=== PATIENT | female | born 1930 | race Caucasian/White ===

== ENCOUNTER → 2017-04-06 | Outpatient (CLI) | payer MEDICARE, OTHER ==
--- NOTE | 2017-04-07 10:31 | MRI ---
EXAM DESCRIPTION: Lumbar Spine w/o Contrast CLINICAL HISTORY: 86 years, Female, RADICULOPATHY COMPARISON: None TECHNIQUE: Multiplanar multi sequence images of the lumbar spine were obtained without gadolinium contrast. FINDINGS: There is minimal grade 1 anterolisthesis at L4-5 and L5-S1, likely related to facet joint degeneration at both levels. No pars defect is identified. Otherwise, vertebral body height and alignment are well-maintained. Is a hemangioma in the T11 body. Minimal Modic type I discogenic endplate signal changes are present at L1-2 and L3-4. The conus lies posterior to the L1-2 disc, and the cauda equina is unremarkable. The paraspinal and visualized retroperitoneal soft tissues are unremarkable. Disc desiccation is noted throughout the lower thoracic and lumbar spine. At L1-2, there is concentric disc bulging, slightly worse in the right foraminal position, with mild bilateral facet joint degeneration resulting in mild right-sided neuroforaminal stenosis. At L2-3, there is concentric disc bulging with bilateral facet joint degeneration resulting in only slight bilateral neuroforaminal stenosis. At L3-4, there is concentric disc bulging with more advanced bilateral facet joint degeneration, worse on the left side. Findings result in mild right-sided and moderate to moderately advanced left-sided neuroforaminal stenosis. Disc material approaches but does not definitely abut the exiting left L3 nerve root. At L4-5, there is concentric disc bulging with bilateral facet joint degeneration and ligament flavum thickening resulting in mild central canal and mild to moderate bilateral neuroforaminal stenosis. Disc material approaches but does not definitely abut or displace the exiting L4 nerve roots. At L5-S1, there is concentric disc bulging, worse in the posterior right para midline and right foraminal and right lateral positions. Bilateral facet joint degeneration is noted, and findings result in fairly advanced right-sided and only mild left-sided neuroforaminal stenosis. Disc material approaches and only questionably abuts the exiting right L5 nerve root. IMPRESSION: Disc bulging, facet joint degeneration and/or ligamentum flavum thickening at L3-4, L4-5 and L5-S1 resulting in central canal stenosis, neuroforaminal stenosis and questionable nerve root abutment as detailed above. Overall, findings are worse on the right side at L5-S1. Electronically signed by: Jamie Land MD 04/07/2017 10:31 AM CDT
== END | disposition home or self-care (01) ==
LOC: MRI 14:14
PROVIDERS: ATTEND Psychiatry & Neurology Neurology
DX: M54.16 Radiculopathy, lumbar region (principal)

== ENCOUNTER → 2017-06-16 | Outpatient (CLI) | payer MEDICARE, OTHER | LOC: GMAB 17:38 | PROVIDERS: ATTEND Family Medicine | DX: E03.9 Hypothyroidism, unspecified (principal); E78.2 Mixed hyperlipidemia; I10 Essential (primary) hypertension ==

== ENCOUNTER 2017-07-17 15:41 | Emergency (ER) | payer MEDICARE, OTHER ==
[2017-07-17 16:04] VITALS: TEMP 99.5
[2017-07-17] MEDS ORDERED: KETOROLAC TROMETHAMINE INJ 60 MG/2 ML VIAL IM ONE (16:28)
--- NOTE | 2017-07-17 16:32 | ED.PDOC ---
History of Present Illness - General Chief Complaint: Back Pain or Injury Stated Complaint: back pain, post-op Time Seen by Provider: 07/17/17 16:19 Source: patient, RN notes reviewed, Vital Signs reviewed, RN/MD Exam Limitations: no limitations - History of Present Illness Initial Comments: Patient comes in with back pain 09/01 after Microdiscectomy on 07/14/17. Pain is down her right leg. Pain is worse when she is getting up and moving. She is on [place] from her Neurosurgeon. Neurosurgeons nurse called and relayed that he thinks it is probably just and inflammation issue and needs a steroid pack but would like her checked out first. Patient reports that the pain has been consistent since the surgery and is not worsening. No drainage or pain at incision site. Timing/Duration: days - 4 Quality/Severity: severe, burning Back Pain Location: lumbar spine Back Pain Radiation: buttocks - Right, lower legs - Right Method of Injury/Prior Injury: other - Post-Op Improving Factors: nothing Worsening Factors: movement Associated Symptoms: denies symptoms Allergies/Adverse Reactions: Allergies Codeine Allergy (Intermediate, Verified 06/29/14 04:31) Vomitting Erythromycin Allergy (Intermediate, Verified 06/29/14 04:31) Vomitting Ether Allergy (Verified 06/29/14 04:31) Vomitting TAPE Allergy (Severe, Uncoded 06/29/14 04:31) Rash PT HAD BLISTERS WHERE TAPE WAS REMOVED WHEN HAD HIP REPLACEMENT IN [facility]. PLEASE USE PAPER TAPE. Home Medications: Ambulatory Orders Aspirin 1 tab PO DAILY 11/26/12 Multiple Vitamin [Multi-Vitamin] 1 tab PO DAILY 11/26/12 Omeprazole [Prilosec] 1 cap PO DAILY 11/26/12 Potassium 1 tab PO DAILY 11/26/12 Triamterene & Hydrochlorothiaz [Hctz/Triamterene 75-50 mg] 25 mg PO DAILY Levothyroxine Sodium [Synthroid] 100 mcg PO DAILY 04/20/13 Metoprolol Succinate [Toprol Xl] 25 mg PO DAILY 04/20/13 Primidone 100 mg PO HS 04/20/13 Simvastatin 40 mg PO DAILY 04/20/13 Methylprednisolone [Medrol Dose Alejo] 4 mg PO DAILY #1 pack 07/17/17 Review of Systems - Review of Systems Constitutional: States: no symptoms reported Respiratory: States: no symptoms reported Cardiology: States: no symptoms reported Gastrointestinal/Abdominal: States: no symptoms reported Musculoskeletal: States: see HPI Skin: States: no symptoms reported Neurological: States: see HPI All other Systems: No Change from Baseline Past Medical History (General) - Patient Medical History Hx Stroke: No Hx Asthma: Yes - has attack q5-6 mos, takes proair inhaler Hx of COPD: No Hx Cardiac Disorders: Yes Hx Congestive Heart Failure: No Hx Pacemaker: No Hx Hypertension: Yes - since 2002 Hx Diabetes: No Hx MRSA: No Surgical History: appendectomy, cholecystectomy, tonsillectomy, Hysterectomy, other - Social History Hx Tobacco Use: No Hx Alcohol Use: Yes Hx Substance Use: No Hx Physical Abuse: No Hx Emotional Abuse: No Family Medical History - Family History Mother Family History: Unknown Physical Exam - Physical Exam General Appearance: Alert, Comfortable, No apparent distress, Well Developed, Well Groomed, Well Hydrated, Well Nourished Cardiovascular/Respiratory: normal peripheral pulses Peripheral Pulses: dorsalis pedis,right: 2+ Back Exam: normal inspection - except for surgical dressing, no surrounding erythema, warmth or tenderness Extremity Exam: no evidence of injury, normal range of motion, no pedal edema Neurologic: no motor/sensory deficits, alert, normal mood/affect, oriented x 3 Skin Exam: normal color, warm/dry Comments: Vital Signs 07/17/17 15:50 Temperature 99.5 F Pulse Rate [ 64 left brachial] Respiratory 16 Rate Blood Pressure 140/63 [right brachial ] O2 Sat by Pulse 97 Oximetry Progress - Progress Progress: 07/17/17 16:36 Toradol 60mg IM given Departure - Departure Clinical Impression: Sciatica Qualifiers: Laterality: right Qualified Code(s): M54.31 - Sciatica, right side ICD-10 Supporting Text: Post operative nerve pain, s/p microdiscectomy Time of Disposition: 16:35 Disposition: Discharge to Home or Self Care Condition: Good Departure Forms: ED Discharge - Pt. Copy, Patient Portal Self Enrollment Instructions: DI for Back Pain With Sciatica Diet: resume usual diet Activity: increase activity as tolerated Referrals: Jason Baez MD [Primary Care Provider] - 1-2 Weeks Prescriptions: Methylprednisolone [Medrol Dose Alejo] 4 mg PO DAILY #1 pack Home Medications: Ambulatory Orders Aspirin 1 tab PO DAILY 11/26/12 Multiple Vitamin [Multi-Vitamin] 1 tab PO DAILY 11/26/12 Omeprazole [Prilosec] 1 cap PO DAILY 11/26/12 Potassium 1 tab PO DAILY 11/26/12 Triamterene & Hydrochlorothiaz [Hctz/Triamterene 75-50 mg] 25 mg PO DAILY Levothyroxine Sodium [Synthroid] 100 mcg PO DAILY 04/20/13 Metoprolol Succinate [Toprol Xl] 25 mg PO DAILY 04/20/13 Primidone 100 mg PO HS 04/20/13 Simvastatin 40 mg PO DAILY 04/20/13 Methylprednisolone [Medrol Dose Alejo] 4 mg PO DAILY #1 pack 07/17/17
[2017-07-17 17:13] VITALS: BP 125/54; O2SAT 95
== END 2017-07-17 16:53 | disposition home or self-care (01) ==
LOC: ER 15:41
DX: G89.18 Other acute postprocedural pain (principal); M54.31 Sciatica, right side; I10 Essential (primary) hypertension; J45.909 Unspecified asthma, uncomplicated; Z79.899 Other long term (current) drug therapy; Z79.82 Long term (current) use of aspirin; Z88.6 Allergy status to analgesic agent; Z88.8 Allergy status to other drugs, medicaments and biological substances; Z88.3 Allergy status to other anti-infective agents

== ENCOUNTER → 2018-02-24 | Outpatient (CLI) | payer MEDICARE, OTHER | END | disposition home or self-care (01) | LOC: GMAB 17:15 | PROVIDERS: ATTEND Family Medicine | DX: E03.9 Hypothyroidism, unspecified (principal); R29.898 Other symptoms and signs involving the musculoskeletal system; R41.81 Age-related cognitive decline; M62.81 Muscle weakness (generalized); E53.8 Deficiency of other specified B group vitamins ==

== ENCOUNTER → 2018-06-02 | Outpatient (CLI) | payer MEDICARE, OTHER | LOC: GMAB 17:20 | PROVIDERS: ATTEND Family Medicine | DX: E03.9 Hypothyroidism, unspecified (principal) ==

== ENCOUNTER → 2018-07-01 | Outpatient (CLI) | payer MEDICARE, OTHER | LOC: GMAE 17:16 | PROVIDERS: ATTEND Family Medicine | DX: E03.9 Hypothyroidism, unspecified (principal) ==

== ENCOUNTER → 2018-09-23 | Outpatient (CLI) | payer MEDICARE, OTHER | LOC: GMAE 17:49 | PROVIDERS: ATTEND Family Medicine | DX: D50.9 Iron deficiency anemia, unspecified (principal) ==

== ENCOUNTER → 2018-10-05 | Outpatient (CLI) | payer MEDICARE, OTHER ==
--- NOTE | 2018-10-05 17:09 | CT ---
EXAM DESCRIPTION: Head: Computed Tomography. CLINICAL HISTORY: ANHEDONIA. Confusion. COMPARISON: None. TECHNIQUE: Non-helical axial scans through the skull and brain, at 2.5 x 20 mm intervals, non-contrast. Coronal and sagittal 2 x 2 mm reconstructions. Total Exam DLP: 752.48 mGy-cm. This exam was performed according to our departmental dose-optimization program which includes automated exposure control, adjustment of the mA and/or kV according to patient size and/or use of iterative reconstruction technique; to reduce radiation dose to as low as reasonably achievable (ALARA). FINDINGS: No hemorrhage, no mass-effect, and no midline shift. Bilateral heterogeneous low-density in the periventricular white matter extending superior to the ventricles bilaterally. Bilateral calcifications in the basal ganglia. Vascular calcifications anterior circulation; physiologic calcifications in the pineal gland and choroid plexus. No effacement or displacement of the ventricles, CSF spaces, or subdural spaces. No extra axial fluid collection or hemorrhage. No gross abnormalities of the bony calvarium. Included paranasal sinuses and mastoid air cells are well - aerated, except for some of the anterior bilateral ethmoid air cells. IMPRESSION: 1. No hemorrhage, no mass effect, no midline shift. Periventricular white matter low-density bilaterally diffuse and heterogeneous most likely due to cerebral microvascular disease and age-related changes. Basal ganglia calcifications are using related to cerebral microvascular disease as well. 2. CT scans are insensitive for detecting small CVAs in the first 24 hours after onset. Evaluation of the brain stem is also limited. If symptoms persist, consider NON-EMERGENT MRI scan of the brain with diffusion imaging. Electronically signed by: Larry Miles MD 10/05/2018 5:08 PM [facility]
== END ==
LOC: CT 16:07
PROVIDERS: ATTEND Family Medicine
DX: R41.81 Age-related cognitive decline (principal); R41.9 Unspecified symptoms and signs involving cognitive functions and awareness; E83.52 Hypercalcemia; R45.84 Anhedonia

== ENCOUNTER → 2019-02-08 | Outpatient (CLI) | payer MEDICARE, OTHER | LOC: GMA 11:50 | PROVIDERS: ATTEND Family Medicine | DX: E03.9 Hypothyroidism, unspecified (principal) ==

== ENCOUNTER → 2019-02-10 | Outpatient (CLI) | payer MEDICARE, OTHER ==
--- NOTE | 2019-02-11 16:08 | US ---
EXAM DESCRIPTION: Soft Tissue,Head/Neck CLINICAL HISTORY: 88 years Female, THYROID NODULE COMPARISON: CT of the neck December 02, 2012. TECHNIQUE: Routine sonographic imaging of the soft tissues of the neck was performed. Images were acquired by the spanish interpreter/translator and sent for review. FINDINGS: Normal thyroidectomy changes are present. No recurrent disease is demonstrated within the thyroidectomy bed. No cervical lymphadenopathy is present. No abnormal mass or cystic finding within the neck. IMPRESSION: Normal thyroidectomy changes. Electronically signed by: Morales Riddle MD 02/11/2019 4:05 PM CDT
== END ==
LOC: US 14:30
PROVIDERS: ATTEND Family Medicine
DX: E04.1 Nontoxic single thyroid nodule (principal)

== ENCOUNTER → 2019-05-10 | Outpatient (CLI) | payer MEDICARE, OTHER | LOC: GMAE 15:16 | PROVIDERS: ATTEND Family Medicine | DX: E03.9 Hypothyroidism, unspecified (principal) ==

== ENCOUNTER → 2019-08-30 | Outpatient (CLI) | payer MEDICARE, OTHER | LOC: GMAE 14:39 | PROVIDERS: ATTEND Family Medicine | DX: E03.9 Hypothyroidism, unspecified (principal); I10 Essential (primary) hypertension ==

== ENCOUNTER → 2020-04-05 | Outpatient (CLI) | payer MEDICARE, OTHER, MEDICAID | LOC: GMAE 17:43 | PROVIDERS: ATTEND Family Medicine | DX: G60.3 Idiopathic progressive neuropathy (principal); R53.83 Other fatigue ==

== ENCOUNTER 2020-05-22 15:27 | Emergency (ER) | payer MEDICARE, OTHER, MEDICAID ==
[2020-05-22 15:48] VITALS: BP 158/75; TEMP 99.1; O2SAT 96
--- NOTE | 2020-05-22 15:48 | ED.PDOC ---
History of Present Illness - General Chief Complaint: Lower Extremity Injury Stated Complaint: right hip pain Time Seen by Provider: 05/22/20 15:39 - History of Present Illness Initial Comments: Pt fell yesterday in her kitchen. She says she was at the counter, and next thing she knew she was falling to the ground. She felt she may have twisted her right hip when she fell. She says she has a h/o a total hip replacement on [facility]. Pt says since fall, she has been able to ambulate with cane, but with increased pain. Pt denies head injury. She denies midline neck or back pain. Pt says that she otherwise feels great. She says she's had labwork in the past 3-6 months that was unremarkable. I offered labs today, but pt declined because she did not feel it was necessary. Allergies/Adverse Reactions: Allergies Codeine Allergy (Intermediate, Verified 06/29/14 04:31) Vomitting Erythromycin Allergy (Intermediate, Verified 06/29/14 04:31) Vomitting Ether Allergy (Verified 06/29/14 04:31) Vomitting TAPE Allergy (Severe, Uncoded 06/29/14 04:31) Rash PT HAD BLISTERS WHERE TAPE WAS REMOVED WHEN HAD HIP REPLACEMENT IN [facility]. PLEASE USE PAPER TAPE. Home Medications: Ambulatory Orders Aspirin 1 tab PO DAILY 11/26/12 Multiple Vitamin [Multi-Vitamin] 1 tab PO DAILY 11/26/12 Omeprazole [Prilosec] 1 cap PO DAILY 11/26/12 Potassium Gluconate [Potassium] 1 tab PO DAILY 11/26/12 Triamterene & Hydrochlorothiaz [Hctz/Triamterene 75-50 mg] 25 mg PO DAILY 11/26/12 Levothyroxine Sodium [Synthroid] 100 mcg PO DAILY 04/20/13 Metoprolol Succinate [Toprol Xl] 25 mg PO DAILY 04/20/13 Primidone 100 mg PO HS 04/20/13 Simvastatin 40 mg PO DAILY 04/20/13 Methylprednisolone [Medrol Dose Alejo] 4 mg PO DAILY #1 pack 07/17/17 Review of Systems - Review of Systems Constitutional: States: no symptoms reported EENTM: States: no symptoms reported Respiratory: States: no symptoms reported Cardiology: States: no symptoms reported Gastrointestinal/Abdominal: States: no symptoms reported Genitourinary: States: no symptoms reported Musculoskeletal: States: joint pain, muscle pain. Denies: back pain, gout, joint swelling, muscle stiffness, neck pain Skin: States: no symptoms reported Neurological: States: no symptoms reported. Denies: headache, numbness, paresthesia, tingling, weakness Endocrine: States: no symptoms reported Past Medical History (General) - Patient Medical History Hx Stroke: No Hx Asthma: Yes - has attack q5-6 mos, takes proair inhaler Hx of COPD: No Hx Cardiac Disorders: Yes Hx Congestive Heart Failure: No Hx Pacemaker: No Hx Hypertension: Yes Hx Diabetes: No Hx MRSA: No Surgical History: appendectomy - Vaccination History Hx Influenza Vaccination: No Hx Pneumococcal Vaccination: Yes - Social History Hx Tobacco Use: Yes Hx Alcohol Use: Yes Hx Substance Use: No Hx Physical Abuse: No Hx Emotional Abuse: No Family Medical History - Family History Mother Family History: Unknown Physical Exam - Physical Exam General Appearance: Alert, Comfortable, No apparent distress Neck: non-tender, full range of motion, normal inspection Cardiovascular/Respiratory: regular rate, rhythm, no M/R/G, normal peripheral pulses, no JVD, normal breath sounds, no respiratory distress Gastrointestinal/Abdominal: non-tender, no organomegaly, no hernia Back: normal inspection, no CVA tenderness, no vertebral tenderness Thigh/Hip: normal inspection, no evidence of injury, normal ROM, soft tissue tenderness - minimal inner right thigh and right hip. No edema, no discolartion Leg: normal inspection, no evidence of injury, normal ROM Knee: normal inspection, non-tender, no evidence of injury, normal ROM Ankle: normal inspection, non-tender, no evidence of injury, normal ROM Foot: normal inspection, non-tender, no evidence of injury, normal ROM Neuro/Tendon: normal sensation, normal motor functions Mental Status: alert, disoriented x 3 Skin: normal color, warm/dry Progress - Progress Progress: 05/22/20 15:56 Rt hip/pelvis - no fracture or dislocation. Hardware intact. No STS. No lytic lesions. Prior total hip arthroplasty. 05/22/20 15:58 Pt did not want any pain meds in ER or for home - EKG/XRAY/CT XRAY: hip - no fx/dislocation Departure - Departure Clinical Impression: Accidental fall, Contusion of hip, right, History of total hip replacement Time of Disposition: 15:58 Disposition: Discharge to Home or Self Care Condition: Excellent Departure Forms: ED Discharge - Pt. Copy, Patient Portal Self Enrollment Instructions: DI for Leg Pain Activity: increase activity as tolerated Referrals: VILMA ROBLEDO MD [Primary Care Provider] - 1-2 Weeks Home Medications: Ambulatory Orders Aspirin 1 tab PO DAILY 11/26/12 Multiple Vitamin [Multi-Vitamin] 1 tab PO DAILY 11/26/12 Omeprazole [Prilosec] 1 cap PO DAILY 11/26/12 Potassium Gluconate [Potassium] 1 tab PO DAILY 11/26/12 Triamterene & Hydrochlorothiaz [Hctz/Triamterene 75-50 mg] 25 mg PO DAILY 11/26/12 Levothyroxine Sodium [Synthroid] 100 mcg PO DAILY 04/20/13 Metoprolol Succinate [Toprol Xl] 25 mg PO DAILY 04/20/13 Primidone 100 mg PO HS 04/20/13 Simvastatin 40 mg PO DAILY 04/20/13 Methylprednisolone [Medrol Dose Alejo] 4 mg PO DAILY #1 pack 07/17/17
--- NOTE | 2020-05-22 16:00 | RAD ---
EXAM DESCRIPTION: Right hip, 2 radiographs CLINICAL HISTORY: Hip pain. Fall injury FINDINGS/ IMPRESSION: Right hip arthroplasty. Dysplastic acetabulum. No periprosthetic fracture or osteolysis. 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
--- NOTE | 2020-05-22 16:01 | RAD ---
EXAM DESCRIPTION: Pelvis, single view CLINICAL HISTORY: Fall injury. Hip pain FINDINGS/ IMPRESSION: Right hip arthroplasty. No periprostatic fracture or osteolysis. 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 No fracture of the left proximal femur or pelvis. Mild osteoarthritis bilateral sacroiliac joints and pubic symphysis Electronically signed by: Carlos Eduardo Saavedra MD 05/22/2020 4:00 PM CDT
== END 2020-05-22 16:03 | disposition home or self-care (01) ==
LOC: ER 15:27
DX: S70.01XA Contusion of right hip, initial encounter (principal); I10 Essential (primary) hypertension; Z96.641 Presence of right artificial hip joint; Z87.891 Personal history of nicotine dependence; Z79.899 Other long term (current) drug therapy; W19.XXXA Unspecified fall, initial encounter; Y92.000 Kitchen of unspecified non-institutional (private) residence as the place of occurrence of the external cause

== ENCOUNTER → 2020-09-25 | Outpatient (CLI) | payer MEDICARE, OTHER, MEDICAID | LOC: GMAE 17:01 | PROVIDERS: ATTEND Family Medicine | DX: E03.9 Hypothyroidism, unspecified (principal); I10 Essential (primary) hypertension ==

== ENCOUNTER → 2020-11-20 | Outpatient (CLI) | payer MEDICARE, OTHER, MEDICAID | LOC: GMAE 15:38 | PROVIDERS: ATTEND Family Medicine | DX: R41.9 Unspecified symptoms and signs involving cognitive functions and awareness (principal) ==

== ENCOUNTER → 2020-11-29 | Outpatient (CLI) | payer MEDICARE, OTHER, MEDICAID ==
--- NOTE | 2020-11-29 15:57 | MRI ---
EXAM DESCRIPTION: Brain w/o Contrast: MRI. CLINICAL HISTORY: UNSPECIFIED SYMPTOMS AND SIGNS INVOLVING COGNITIVE FUNCTIONS AND COMPARISON: None. TECHNIQUE: Multiplanar, high-field MRI unit, multiple diffusion sequences, multiple conventional sequences without contrast. FINDINGS: Multiple bilateral confluent and multifocal hyperintense FLAIR and T2-weighted signal lesions in the periventricular white matter and sub-cortical white matter slightly asymmetrically increased hyperintense FLAIR lesions in the left frontal lobe.. No diffusion restriction. No hemorrhage, no cerebral edema, no midline shift.. Small foci of similar signal in the anterior and posterior left basal ganglia. Normal signal in the right basal ganglia. Normal signal in the brainstem and cerebellar hemispheres.. Concordance of the diffusion and non-diffusion sequences with no diffusion restriction. Cortical sulci, ventricles, and other CSF spaces, and the subdural spaces are normally configured for patient's age. No effacement or displacement. No midline shift. No extra-axial hemorrhage. Normal flow signal void in the major vessels of the beaver Vanegas, and the venous sinuses. IACs are symmetric bilaterally. Normal signal in the bilateral mastoid air cells. No mass effect in the bilateral cerebellopontine angles. Pituitary gland occupies less than 50% of the sella. Base of the cerebellar tonsils is at the level of the foramen magnum. Paranasal sinuses are unremarkable.. The bony calvarium is intact. IMPRESSION: 1. Diffuse white matter lesions in the periventricular white matter, cordova radiata, and centrum semiovale consistent with age-related changes and cerebral microvascular disease. No hemorrhage, no cerebral edema, no mass effect. More focal lesion in the left frontal lobe shows no evidence of hemorrhage or diffusion restriction. 2. Small lesions in the left basal ganglia with no hemorrhage, no mass effect, no diffusion restriction. 3. Normal noncontrast MR diffusion study with no evidence of significant ischemia or subacute or acute infarction. 4. Small pituitary gland. Correlate with clinical findings. Electronically signed by: Larry Miles MD 11/29/2020 3:55 PM [facility]
== END ==
LOC: MRI 08:41
PROVIDERS: ATTEND Family Medicine
DX: R41.9 Unspecified symptoms and signs involving cognitive functions and awareness (principal); R90.82 White matter disease, unspecified; G93.9 Disorder of brain, unspecified; E23.7 Disorder of pituitary gland, unspecified